=== PATIENT | male | born 1955 | race Caucasian/White ===

== ENCOUNTER 2016-10-15 15:30 | Inpatient (IN) | payer OTHER ==
[~2016-10-15] VITALS: Ht 185.4 cm; Wt 97.2 kg
--- NOTE | ~2016-10-15 | HP ---
PATIENT'S NAME: NATALIE BARBOZA [facility] AGE: 61 Y [address] ROOM: [address] [place], [place] [address] LOCATION: GPCU ADMIT DATE: 10/15/2016 History & Physical DISCHARGE DATE: FAMILY PHYSICIAN: Alfred Waldron MD ATTENDING PHYSICIAN: Rosio Ramires DATE OF SERVICE: HISTORY OF PRESENT ILLNESS: This is a 61-year-old man with coronary artery disease, who is being transferred from [place], where he presented with chest discomfort. The patient originally presented in October 2014 with acute coronary syndrome involving the mid left anterior descending artery. He received a 3.0 x 16 Promus stent. He had a repeat catheterization in December 2015, that showed no culprit stenosis. He had a stable stent halfway of a [id number]-cycwpy diagonal. He had a stress test prior to that catheterization that had shown an ejection fraction of 70% and possibly mild ischemia in the circumflex territory. The patient was doing well. He was last seen at the office in [facility] in July 2016. He felt some fatigue, so his beta-paloma was discontinued, but he was on long-term dual-antiplatelet therapy with aspirin 81 mg and Brilinta 60 mg and he was doing well. 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 The patient says that the night before he woke up with a heavy feeling in the left shoulder and chest discomfort. He took some ibuprofen and after that, he was able to sleep again. He woke up in the morning. The discomfort was still there. He did not tell anything to his . He went to work and then he had to attend a and the longer he stayed there, the substernal discomfort intensified, so he went to [facility] where he knows the cardiac rehab people. They connected him to monitoring equipment. Everything looked okay. But since his discomfort continued to intensify, he went to the emergency room and seen by the clinic people and then I was contacted. Elaina Loaiza, who examined the patient felt that something was going on as the patient was saying that his discomfort was similar to when he had the original stent, so the patient was placed on intravenous heparin and then transferred by air to [facility]. He says by the time he arrived here, his discomfort has improved. REVIEW OF SYSTEMS: Review of systems was performed. He uses glasses. He has some hearing loss, but then does not use hearing aids. He has history of deep vein thrombosis to the right leg in 2007. He has some history of arthritis. He had history of blood in the stool and subsequent colonoscopy and history of melanoma removed from his arm. Remaining systems are negative. The patient says that he had excellent exercise capacity. About two weeks ago, he was [place] in the mountains and felt very well. He says that PATIENT'S NAME: NATALIE BARBOZA [facility] AGE: 61 Y [address] ROOM: [place] [address] LOCATION: [facility] ADMIT DATE: 10/15/2016 History & Physical DISCHARGE DATE: FAMILY PHYSICIAN: Alfred Waldron MD ATTENDING PHYSICIAN: Rosio Ramires because he was feeling so well, he started taking his medications infrequently. He thinks maybe taking the statin two or three times a week and same apparently for the remaining details. There is no surgical history. OUTPATIENT MEDICATIONS: 1. Aspirin 81 mg daily. 2. Brilinta 60 mg twice a day. 3. Coenzyme Q10 once a day. 4. Crestor 20 mg daily. 5. Fish oil one tablet daily. 6. Glucosamine chondroitin every 2 days. 7. Iron 65 mg daily. 8. Lisinopril 2.5 mg daily. 9. Nitroglycerin 0.4 as needed. 10. Flaxseed tablet daily. FAMILY HISTORY: His mother at 69 from leukemia or lymphoma. She did have some heart issues, but no heart attacks and they were not life threatening or the cause of . His father at 85 from Alzheimer's. A brother has multiple coronary stents. PHYSICAL EXAMINATION: GENERAL: Pleasant, middle-aged man. He is alert and oriented. He is lying on the gurney. He has about 2/10 chest discomfort. VITAL SIGNS: Height is 6 feet 1 inch, weighs 98.4 kg, blood pressure 113/56, heart rate 58. Head normocephalic atraumatic Neck supple. No JVD or carotid bruits Heart Regular S1 S2 Lungs clear Abdomen soft Lower extremities no edema IMAGING: His electrocardiogram is normal. PLAN: I will proceed with emergent cardiac catheterization and possible intervention according to the findings. We will encourage the patient to take his medications on a regular basis. Thank you for allowing participate in the care of Mr. Barboza. ROSIO RAMIRES MD PE/sonia PATIENT'S NAME: NATALIE BARBOZA [facility] AGE: 61 Y [address] ROOM: [place] [address] LOCATION: [facility] ADMIT DATE: 10/15/2016 History & Physical DISCHARGE DATE: FAMILY PHYSICIAN: Alfred Waldron MD ATTENDING PHYSICIAN: Rosio Ramires /[id number] D: T: HISTORY & PHYSICAL
--- NOTE | ~2016-10-15 | HP ---
PATIENT'S NAME: NATALIE MARTINEZ [facility] AGE: 61 Y [address] ROOM: [place] [address] LOCATION: [facility] ADMIT DATE: 10/15/2016 History & Physical DISCHARGE DATE: FAMILY PHYSICIAN: Alfred Waldron MD ATTENDING PHYSICIAN: Rosio Young DATE OF SERVICE: ADDENDUM: SOCIAL HISTORY: The patient is , employed community health education coordinator, and does not smoke or use alcohol. ROSIO YOUNG MD PE/sonia /[id number] D: [id number] T: [id number] HISTORY & PHYSICAL
--- NOTE | ~2016-10-15 | DS ---
PATIENT'S NAME: NATALIE MARTINEZ [place] AGE: 61 Y [address] ROOM: [place] [address] LOCATION: GPCU ADMIT DATE: 10/16/2016 Discharge Summary DISCHARGE DATE: 10/17/2016 FAMILY PHYSICIAN: Alfred Waldron MD ATTENDING PHYSICIAN: Rosio Ramires [facility] COURSE: The patient was admitted emergently on 10/15/2016 and discharged on 10/17. He had unstable angina and a drug-eluting stent was placed in the distal circumflex. The patient subsequently continued to have some chest discomfort and some pleuritic pain, so he ended up having eventually a CT angiogram of his chest that showed no pulmonary embolus. His echocardiogram showed no pericardial effusion. He did have an elevated C- reactive protein. His WBC was 8.2. His troponin peaked at 0.836. It was immediately after the intervention 0.494. ProBNP was 259. He does not have clinical heart failure. Total cholesterol was 119. LDL 46. Procalcitonin was negative. Blood culture also drawn that did not grow anything up till the patient's discharge. IMPRESSION: 1. Coronary artery disease with acute coronary syndrome, requiring drug- eluting stent to the distal circumflex this admission and previous intervention to the mid left anterior descending artery with patent stent. 2. Inflammatory reaction of uncertain etiology. PLAN: The patient will be discharged home and will follow with Elaina Loaiza, NOAH, and myself at [facility] [place]. CURRENT MEDICATIONS: 1. Aspirin 81 mg daily. 2. Lisinopril 2.5 mg daily. 3. Ticagrelor 90 mg twice a day. 4. Rosuvastatin 20 mg daily. 5. Carvedilol 12.5 mg twice a day. 6. Ranolazine 500 mg twice a day. Thank you for allowing me to participate in the care of your patient. ROSIO RAMIRES MD PE/yolal PATIENT'S NAME: NATALIE MARTINEZ [place] AGE: 61 Y [address] ROOM: [address] [address] LOCATION: GPCU ADMIT DATE: 10/16/2016 Discharge Summary DISCHARGE DATE: 10/17/2016 FAMILY PHYSICIAN: Alfred Waldron MD ATTENDING PHYSICIAN: Rosio Ramires /[id number] d: 10/19/161950 t: 10/25/167, DISCHARGE SUMMARY
--- NOTE | ~2016-10-15 | ECHO ---
Transthoracic Echocardiography Report (TTE) Demographics Patient Name NATALIE MARTINEZ Date of Study 10/16/2016 Patient Number [id number] Visit Number [id number] Date of 1955 Room Number G6305 Gender Male Number Age 61 year(s) Referring Hannah Ortiz Supervisor Coin Machine Mar Mason RVT Physician Leona ROSS Physician Interpreting [facility] Childcare Attendant Physician Angel Delgadillo MD Supervising Ordering [facility]/MLP Physician Angel Delgadillo MD Nurse Stress Home Security Alarm Installer Conclusions Contractility Score Summary Normal Left Ventricular contractility was noted. Summary The estimated left ventricular ejection fraction is 50-55%. Mild concentric left ventricular hypertrophy. The left ventricle is borderline dilated . Diastolic assessment reveals Grade II pseudonormal diastolic function . Mild dilated right ventricle. Normal right ventricular systolic performance. Mild tricuspid regurgitation by color Doppler. There is mild pulmonary hypertension. The pulmonary pressure (RVSP) is 41 mmHg. Procedure Type of Study TTE procedure:2D Echocardiogram. Procedure Date Date: 10/16/2016 Start: 09:29 AM Study Location: Inpatient Portable Technical Quality: Adequate visualization Indications:Post PTCA. Appropriate Use Criteria: 9 Patient Status: Routine HR: 72 bpm BP: 126/61 mmHg Allergies - No known allergies. M-Mode/2D Measurements LV Diastolic Dimension: 5.13 cm LV Systolic Dimension: 2.3 cm LV Septum Diastolic: 1.54 cm LV PW Diastolic: 1.4 cm AO Root Dimension: 2.6 cm Cardiac Output: 3.89 l/min AV Cusp Separation: 1.8 cm RV Diastolic Dimension: 3.36 cm LA volume: 54 ml LVOT: 2 cm RV Base: 2.98 cm LVOT VTI: 17.2 cm RV Mid: 4.32 cm LV Stroke volume: 54.01 ml TAPSE: 1.84 cm TDI-S': 14.2 cm/s Doppler Measurements AV Peak Velocity: 1.46 m/s MV Peak E-Wave: 0.88 m/s AV Peak Gradient: 8.53 mmHg MV Peak A-Wave: 0.94 m/s AV Mean Gradient: 4 mmHg MV E/A Ratio: 0.94 LVOT Peak Velocity: 0.78 m/s MV P1/2t: 39 msec TR Gradient:26.01 mmHg PV Peak Velocity: 0.95 m/s Estimated RAP:15 mmHg PV Peak Gradient: 3.62 mmHg Estimated RVSP: 41 mmHg Estimated PASP: 41.01 mmHg E' Septal Velocity: 0.06 m/s A' Septal Velocity: 0.11 m/s E' Lateral Velocity: 0.08 m/s A' Lateral Velocity: 0.13 m/s Findings Left Ventricle Mild concentric left ventricular hypertrophy. The left ventricle is borderline dilated . Diastolic assessment reveals Grade II pseudonormal diastolic function . Right Ventricle Mild dilated right ventricle. Normal right ventricular systolic performance. Left Atrium The left atrium is mildly dilated. Right Atrium The right atrium is mildly to moderately dilated. IVC measures 1.65 cm with partial inspiratory collapse. Mitral Valve Mild mitral annular calcification. Trivial mitral regurgitation by color Doppler. Aortic Valve Normal aortic valve structure and function. Tricuspid Valve Mild tricuspid regurgitation by color Doppler. There is mild pulmonary hypertension. The pulmonary pressure (RVSP) is 41 mmHg. Pulmonic Valve Trivial pulmonic valve regurgitation by color Doppler. Pericardial Effusion No evidence of pericardial effusion. Miscellaneous Visualized portions of the aortic root and ascending aorta appear normal in size. Pleural Effusion No evidence of pleural effusion. Contractility Score LV regional wall motion:(0-Non visualized 1-Normal 2-Hypokinesis 3-Akinesis 4-Dyskinesis 5-Aneurysm) Signature dtt: Allen Young dtd: 10/16/16 0929 Physician Self Edit
--- NOTE | ~2016-10-15 | CATH ---
Cardiac Diagnostic + PCI Report Demographics Patient Name MICHELLE August Gender Male Date of 1955 Age 61 year(s) Patient Number [id number] Date of Study 10/15/2016 Visit Number [id number] Room Number G6[address] [place] [id number] Ht 185.42 cm Wt 101 kg Referring Chivo Simon MD Primary Physician Physician Performing Efstratiou Secondary Physician Physician Angel Delgadillo MD Diagnostic Efstratiou Assisting Physician Physician Angel Delgadillo MD Interventional Efstratiou Physician Exterminator Helper Termite Physician Angel Delgadillo MD Findings and Conclusions Diagnostic Findings and Conclusion 1. Left Dominant Circulation. 2. Patent stent in mid LAD. Up to 30% stenosis in distal LAD. 3. New 75% stenosis in circ PDA. Diagnostic Recommendations 1. PCI to circ PDA. Interventional Findings and Conclusion 1. Successful HANS to circ PDA. Interventional Recommendations 3. Continue Guidline Recommended Treatment. Procedure Description The patient was brought to the diagnostic cardiac catheterization-EP laboratory in the fasting, non-sedated state. Informed consent was obtained in the written and verbal form after the risks and benefits were explained. The patient had no further questions and agreed to proceed. The planned puncture-incision site(s) were shaved and prepped with ChloraPrep and draped in the usual sterile manner. Conscious sedation, supplemental oxygen, and pain control medications were delivered by a registered nurse under physician guidance. Surface ECG rhythm, blood pressure measurement, and pulse oximetry were monitored throughout the procedure. Arterial access. The access site was infiltrated with lidocaine. The vessel was entered with the Seldinger technique. A sheath was advanced into the vessel and used for catheter placement. Selective left coronary angiography. A catheter was advanced into the left coronary vessel ostium under Fluoroscopic guidance. Contrast was injected by hand. Images were obtained in multiple projections. Selective right coronary angiography. A catheter was advanced into the right coronary vessel ostium under fluoroscopic guidance. Contrast was injected by hand. Images were obtained in multiple projections. Left heart catheterization. A catheter was advanced across the aortic valve to the left ventricle under fluoroscopic guidance. Resting hemodynamics were obtained. Stent Placement: A guiding catheter was used to intubate the vessel. A 0.14 wire was used to cross the lesion. A Drug Eluting Stent was placed. Post placement angiograms were performed. Arterial artery hemostasis was achieved. The patient was transferred to a regular nursing floor via cart accompanied by a nurse. The patient left the laboratory in stable condition. Diagnostic Cath Status: Emergency Interventional Cath Status: Emergency Procedure Procedure Type Diagnostic procedure:Angiography:, Coronary Angios, [facility] PCI procedure:Drug Eluting Coronary Stent:, CFX Indications: Acute MA. The procedure was explained in detail to the patient. Risks, complications and alternative treatments were reviewed. Written consent was obtained. Medications Reviewed with Patient prior to Procedure. Angiographic Findings Dominance: Left Cardiac Arteries and Lesion Findings LMCA: Normal (0% Stenosis). LAD: Patent stent.There is a previous stent on Mid LAD Mid subsection. Lesion on Dist LAD: Distal subsection.30% stenosis . LCx: Lesion on Dist CX: Distal subsection.75% stenosis 20 mm length reduced to 0%. Pre procedure JANELL III flow was noted. Post Procedure JANELL III flow was present. The guidewire cross was successful.The lesion was diagnosed as a moderate risk lesion.Culprit lesion. Devices used - Whisper Wire .014 x 190. Number of passes: 1. - Promus Premier 2.5 x 20 Stent. 1 inflation(s) to a max pressure of: 12 zeus. - NC Emerge Balloon 2.75 x 12. 1 inflation(s) to a max pressure of: 16 zeus. RCA: Normal (0% Stenosis). Coronary Tree Procedure Data Procedure Date Date: 10/15/2016Start: 04:48 PMEnd: 05:42 PM Entry Locations - Retrograde Percutaneous access was performed through the Right Radial artery (Primary location). A 6 Fr sheath was inserted. Closure Comments: 11 cc of air placed in R band by sherice neal . Procedure Medications Order and Administration + + + + + !Time !Medication !Dosage !Route ! + + + + + !10/15/2016 04:48 PM !Fentanyl !25 mcg !I.V. ! + + + + + 10/15/2016 04:50 PM !Radial Heparin (ACC_3) !2500 units !I.A. ! + + + + + !10/15/2016 04:50 PM !Radial Nitroglycerin !200 mcg !I.A. ! + + + + + 10/15/2016 05:09 PM !Heparin (ACC_3) !4000 units !I.V. bolus ! + + + + + 10/15/2016 05:17 PM !0.9% NaCl !300 ml !I.V. bolus ! + + + + + !10/15/2016 05:18 PM !Nitroglycerin !200 mcg !I.C. ! + + + + + !10/15/2016 05:42 PM !Heparin in NS(1000u/500ml) !0 ml ! ! + + + + + Devices Used - A6 Fr. BS JR 4 Diag. Catheterwas used for:Right coronary angiography. - A6 Fr. BS JL 3.5 Diag. Catheterwas used for:Left coronary angiography. - A6 Fr. XBLAD 3.5 Guide Catheterwas used for:Circumflex Intervention. - A6 Fr. XB 3 Guide Catheterwas used for:Circumflex Intervention. Contrast Material - Isovue 12382 ml Fluoroscopy Time: Diagnostic: 10:00 minutes. Total: 10:00 minutes. Fluoroscopy Dose: Diagnostic: 1613 mGy. Total: 1613 mGy. Estimated Blood Loss: 15 ml. Additional [facility] PCI Information PCI Indication:PCI for high risk Non-STEMI or unstable angina. Medical History Allergies - No known allergies. Risk Factors The patient risk factors include:prior PCI on 10/18/2014;hypercholesterolemia, hypertension, last creatinine: 1 mg/dl, creatinine clearance: 113.63 ml/min and dyslipidemia. Admission Data Admission Date: 10/15/2016 Admission Time: 04:28 PM Admit Source: [facility] [place] acute care facility Insurance Payors: Private health insurance. Admission Medications + +------+------+---------+---------+ + + !Medication !Dosage!Times !Last !Last !Administered !Comments ! ! ! !Per !Delivery !Delivery ! ! ! ! ! !Day !Date !Time ! ! ! + +------+------+---------+---------+ + + !Aspirin (any) ! ! ! ! ! ! ! + +------+------+---------+---------+ + + !Beta Barbi ! ! ! ! ! ! ! !(any) ! ! ! ! ! ! ! + +------+------+---------+---------+ + + !Statin (any) ! ! ! ! ! ! ! + +------+------+---------+---------+ + + !Low Molecular ! ! ! ! ! ! ! !Weight Heparin! ! ! ! ! ! ! !(any) ! ! ! ! ! ! ! + +------+------+---------+---------+ + + Clinical Evaluation Leading to Procedure - The patient's CAD presentation was assessed as: STEMI.The symptom onset was first noted on 10/15/2016 02:00 AM(time was estimated). - The patient's anginal syndrome during the past two weeks was assessed as: Class IV according to the [place] Cardiovascular Society Classification System (CCS). Anti-anginal medications were prescribed during the past two weeks. The medication is: Beta Blockers. Snapshots Hemodynamics Condition: Rest O2 Consumption: Estimated: 255.21Heart Rate: 59 bpm Pressures (mmHg) +-----+ + !Site !Pressure ! +-----+ + !LV !103/3 ,10 ! +-----+ + !LV !99/3 ,10 ! +-----+ + !AO !95/62 (78) ! +-----+ + !LV !103/3 ,10 ! +-----+ + !AO !92/61 (77) ! +-----+ + !AO !105/63 (82) ! +-----+ + Valve Gradients and Areas + +---------+---------+---------+ +---------+ + !Valve !Peak !Mean !Area !Index !Flow !Source ! + +---------+---------+---------+ +---------+ + !Aortic !9 !6 ! ! ! ! ! + +---------+---------+---------+ +---------+ + !Aortic !9 !6 ! ! ! ! ! + +---------+---------+---------+ +---------+ + Shunts Oxygen Values O2 Capacity 190.4 O2 Consumption 255.21 Signatures dtt: Allen Young dtd: 10/15/16 4278 Physician Self Edit
[~2016-10-15 15:30] MED LIST: ASPIRIN EC81 MG PO; BRILINTA90 MG PO; CO Q-10100 MG PO; FISH OIL 1,0001 EACH PO; GLUCOSAMINE H1500 MG PO; GLUCOSAMINE PO; IRON PO; LIPITOR80 MG PO; MILK THISTLE PO; NITROGLYCERIN0.4 MG SL; TERBINAFINE HC250 MG PO; TOPROL XL25 MG PO; VITAMIN B-121000 MCG PO; VITAMIN D PO; ZESTRIL2.5 MG PO
--- NOTE | 2016-10-15 19:18 | NUR ---
PATIENT DIRECT ADMITTED TO PCU FROM AUGER PRESS OPERATOR AT 17:45. RIGHT RADIAL SITE W/ R-BAND IN PLACE, SOFT, NO BLEEDING/HEMATOMA. VSS. AT BEDSIDE. PATIENT ORIENTED TO PCU AND CALL LIGHT. REINFORCED WITH PATIENT AND RADIAL HEART CATH SITE PRECAUTIONS.
[2016-10-15] MEDS ORDERED: CRESTOR20 MG PO (19:38)
--- NOTE | 2016-10-16 00:52 | NUR ---
PT ADMITTED FROM [place] WITH CHEST PAIN. WENT STRAIGHT TO MATERIAL YARD CLERK. ADMITTED TO PCU AFTER RECEIVING A STENT TO THE CIRC VIA R) RADIAL. ADMITTED TO FLOOR WITH R) BAND.
--- NOTE | 2016-10-16 04:27 | NUR ---
Significant Event: R) RADIAL SITE SOFT WITHOUT BRUISING. BAND-AID AND COBAN INTACT. PT STARTED TO C/O INCREASING PRESSURE IN HIS CHEST. VITALS WERE STABLE. DR. GOEL NOTIFIED AND HE ORDERED A NITRO GTT TO BE STARTED TO TITRATE FOR CHEST PAIN. O2 WAS APPLIED AT 2L PER NC. PT DID STATE THIS DID MAKE HIS CHEST FEEL BETTER AND HE WAS ABLE TO SLEEP. REMAINED IN ROOM ALL NIGHT. Follow up:
[2016-10-16 06:37] LABS: ALBUMIN 3.4 gm/dL (3.5-5.0); ALK PHOS 51 IU/L (33-138); ALT 24 IU/L (12-78); ANION GAP 12.1 (10.0-19.0); AST 19 IU/L (10-40); BLOOD UREA NITROGEN 14 mg/dL (6-24); CALCIUM 8.5 mg/dL (8.5-10.5); CHLORIDE 106 mMol/L (96-110); CO2 23 mMol/L (22-32); CREATININE 0.8 mg/dL (0.6-1.3); POTASSIUM 4.1 mMol/L (3.7-5.1); SODIUM 137 mMol/L (135-145); TOTAL BILIRUBIN 1.2 mg/dL (0.0-1.5); TOTAL PROTEIN 7.1 g/dL (6.0-8.4)
--- NOTE | 2016-10-16 07:14 | NUR ---
0515: PT STARTED TO C/O OF INCREASED CHEST PRESSURE. O2 WAS REAPPLIED AT 3L PER NC. NITRO WAS INCREASED TO 10MCG/MIN. HE KEPT TRYING TO REPOSITION WITHOUT ANY RELIEF. HE DID SLEEP FOR A LITTLE BIT. HE STATED THE PAIN RELIEVED FOR A SHORT TIME, TO ALLOW HIM TO GET A LITTLE MORE SLEEP. AT 0650, THE NITRO WAS INCREASED TO 15MCG/MIN. DR. RAMIRES WAS HERE ROUNDING AND HE WAS UPDATED ON STATUS OF PAIN.
--- NOTE | 2016-10-16 13:54 | NUR ---
Introduced self and role of care management to pt and . They live in [place] and either home later today or in am pending how his chest pain is. I did leave them a Brilinta card. AT this time denies any post discharge needs.
--- NOTE | 2016-10-16 16:34 | NUR ---
PATIENT HAD C/O CHEST PRESSURE/LEFT SHOULDER PAIN RATED 2/10, NITRO GTT GAVE NO RELIEF. TYLENOL GAVE RELIEF TO PAIN, LAST RATED 0.5/10. NITRO D/C'D. PATIENT AMBULATED IN [place]. VSS, SATS HIGH 90%S ON RA. ECHO COMPLETED. INCREASED COREG, LOVENOX AND RANEXA TO START.
--- NOTE | 2016-10-17 03:40 | NUR ---
Significant Event: A/0X3. RESTED IN BED ALL OF SHIFT. TURNS SELF. UP AB PASTORA IN ROOM. WALKED HALLS X1 THIS EVENING. AFEBRILE. VSS ON 2L. IBPROFEN GIVEN X1. LAST DOSE WAS AT 194. PATIENT WAS HAVING .5/10 CP/TIGHTNESS, PRESSURE AND PAIN TO L) SHOULDER. GAVE IBPROFEN AND PATIENT STATES IT HELPED. VOIDS FINE. NO BM THIS SHIFT. BEEN NPO SINCE MIDNIGHT. POSSIBLY D/C HOME TODAY.IV TO L) AC AND R) HAND SL. Follow up: CONTINUE WITH PLAN OF CARE.
[2016-10-17 10:00] LABS: BASOPHIL % 0.2 %; EOSINOPHIL # 0.2 K/uL (0.0-0.5); EOSINOPHIL % 2.2 %; HEMATOCRIT 41.7 % (37.0-53.0); HEMOGLOBIN 13.7 g/dL (12.0-17.0); IMMATURE GRANULOCYTE % 0.5 %; LYMPHOCYTE # 1.4 K/uL (0.8-4.0); LYMPHOCYTE % 16.5 %; MCH 28.1 pg (27.0-34.0); MCHC 32.9 gm/dL (32.0-36.5); MCV 85.6 fl (83.0-98.0); MONOCYTE # 0.5 K/uL (0.0-1.0); MONOCYTE % 6.6 %; MPV 10.8 fl (9.4-12.4); NEUTROPHIL # (ANC) 6.1 K/uL (1.4-9.0); NRBC % 0 /100WBC (0-0.00); PLATELET COUNT 171 K/uL (150-450); RBC 4.87 M/uL (4.00-6.00); RDW-CV 13.7 % (11.9-14.6); WBC 8.2 K/uL (4.0-11.0)
[2016-10-17 10:20] LABS: CREATININE 1.1 mg/dL (0.6-1.3)
[2016-10-17] MEDS ORDERED: COREG12.5 MG PO (13:05)
[2016-10-17] MEDS ORDERED: RANEXA ER500 MG PO (13:13)
[2016-10-17] MEDS ORDERED: TYLENOL325 MG PO (13:19)
--- NOTE | 2016-10-17 15:11 | NUR ---
Patient dismissed to home with . Patient and spouse deny question or concern of dismissal. Radial cath site WNL. States that ranexa has "improved my chest pain". Whitney dc'd. New med information and medication savings card provided.
== END 2016-10-17 14:35 | disposition disaster alternative care site (69) | DRG 247 ==
LOC: GPCU 16:28
PROVIDERS: ADMIT Internal Medicine Cardiovascular Disease
PROC: 027034Z Dilation of Coronary Artery, One Artery with Drug-eluting Intraluminal Device, Percutaneous Approach (ICD-10-PCS; principal; 2016-10-15)
PROC: B211YZZ Fluoroscopy of Multiple Coronary Arteries using Other Contrast (ICD-10-PCS; principal; 2016-10-15)
PROC: 4A023N7 Measurement of Cardiac Sampling and Pressure, Left Heart, Percutaneous Approach (ICD-10-PCS; principal; 2016-10-15)
DX: I21.3 ST elevation (STEMI) myocardial infarction of unspecified site (principal); I10 Essential (primary) hypertension; Z79.82 Long term (current) use of aspirin; E78.5 Hyperlipidemia, unspecified; Z86.718 Personal history of other venous thrombosis and embolism; Z79.01 Long term (current) use of anticoagulants; I20.0 Unstable angina
CPT/HCPCS: C1725; C1769; C1874; C1887; C1894; C9600; G0378; J1644; J1650; J2997; J3010; J7030; Q9967